=== PATIENT | female | born 1985 | race African-American/Black ===

== ENCOUNTER 2020-06-11 10:46 | Emergency (ER) | payer OTHER ==
[~2020-06-11] VITALS: Ht 162.6 cm; Wt 59.9 kg
[2020-06-11 11:39] LABS: ABSOLUTE NEUTROPHILS 7.7 thou/uL (1.4-8.2); BASOPHILS 0.5 % (0.0-2.0); CALCIUM 8.7 mg/dL (8.5-10.1); CREATININE 0.8 mg/dL (0.6-1.0); EOSINOPHILS 0.5 % (0.0-3.0); HEMATOCRIT 37.8 % (37.0-47.0); HEMOGLOBIN 12.3 gm/dL (12.0-15.0); LYMPHOCYTES 14.6 % (24.0-44.0); MCH 28.7 pg (26.0-34.0); MCHC 32.4 g/dL (28.0-37.0); MCV 88.6 fL (80.0-100.0); MONOCYTES 4.5 % (1.0-8.0); PLATELET COUNT 305 thou/uL (150-400); POLYS 79.9 % (36.0-66.0); RBC 4.27 mil/uL (4.20-5.00); RDW 16.1 % (10.5-14.5); WBC 9.6 thou/uL (4.0-11.0)
[2020-06-11 11:42] LABS: POTASSIUM 4.5 mmol/L (3.5-5.1)
[2020-06-11] MEDS ORDERED: CLINDAMYCIN HC300 MG PO (13:23)
[2020-06-11] MEDS ORDERED: NORCO 5-325 TA1 EAC2 PO (13:23)
[2020-06-11] MEDS ORDERED: ZOFRAN ODT4 MG PO (13:23)
[2020-06-11 13:32] VITALS: BP 155/103
--- NOTE | 2020-06-12 07:47 | EKG ---
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
== END 2020-06-11 13:32 | disposition home or self-care (01) ==
LOC: ER 10:46
PROVIDERS: Emergency Medicine
DX: K04.7 Periapical abscess without sinus (principal); I10 Essential (primary) hypertension; F17.210 Nicotine dependence, cigarettes, uncomplicated; Z88.0 Allergy status to penicillin